=== PATIENT | male | born 1940 | race Caucasian/White ===

== ENCOUNTER 2022-11-25 10:52 | Emergency (ER) | payer MEDICARE, BC ==
[~2022-11-25] VITALS: Ht 182.9 cm; Wt 97.7 kg
[2022-11-25 10:58] VITALS: TEMP 97.7
[2022-11-25 13:24] VITALS: BP 167/92; PULSE 51; RESP 17; O2SAT 97
[2022-11-25] MEDS ORDERED: LIDOcaine 1% W/epiNEPHrine 1:100,000 20ml vial SQ ONE (14:15)
[2022-11-25] MEDS ORDERED: TETanus/Pertussis (Acell)/Diphther VAC/PF (Tdap-Adult) 0.5ml syringe IMVAC ONE (14:15)
[2022-11-25] MEDS ORDERED: bacitracin 15gm ointment TP ONE (14:15)
== END 2022-11-25 15:26 | disposition home or self-care (01) ==
LOC: ER 10:53
DX: S01.112A Laceration without foreign body of left eyelid and periocular area, initial encounter (principal); S09.90XA Unspecified injury of head, initial encounter; S00.12XA Contusion of left eyelid and periocular area, initial encounter; Z88.5 Allergy status to narcotic agent; Z88.6 Allergy status to analgesic agent; W19.XXXA Unspecified fall, initial encounter; Y93.89 Activity, other specified; Y92.89 Other specified places as the place of occurrence of the external cause; Y99.8 Other external cause status
CPT/HCPCS: 12011; 70450; 90471; 90715; 99285

== ENCOUNTER 2023-05-13 23:55 | Emergency (ER) | payer OTHER, MEDICARE, BC ==
[~2023-05-13] VITALS: Ht 182.9 cm; Wt 98.2 kg
[2023-05-14] MEDS: aspirin 81mg tab.chew PO ONE (00:36)
[2023-05-14] MEDS: nitroGLYCERIN 0.4mg SUBLingual tab SL PRN (00:36)
[2023-05-14 00:49] LABS: ALBUMIN 3.2 G/DL (3.4-5.0); ANION GAP 9 (8-16); BLOOD UREA NITROGEN 31 MG/DL (7-18); BUN/CREATININE RATIO 16.7 (10.0-20.0); CALCIUM 8.5 MG/DL (8.5-10.1); CHLORIDE 110 MMOL/L (99-107); CREATININE 1.86 MG/DL (0.60-1.10); GLUCOSE 102 MG/DL (70-104); PRO BRAIN NATRIURETIC PEPTIDE 434 PG/ML (0-450); SODIUM 143 MMOL/L (135-145); TOTAL CARBON DIOXIDE 24.3 MMOL/L (24-32); eCRCL 34 ML/MIN; eGFR 35 ML/MIN
[2023-05-14 00:54] LABS: POTASSIUM 4.2 MMOL/L (3.5-5.1)
[2023-05-14 00:55] LABS: BASOPHILS % (AUTO) 0.8 % (0-1); EOSINOPHILS # (AUTO) 0.1 X10'3 (0-0.9); EOSINOPHILS % (AUTO) 2.8 % (0-6); HEMATOCRIT 39.2 % (42.0-52.0); HEMOGLOBIN 13.1 g/dl (14.0-17.9); LYMPHOCYTES # (AUTO) 1.2 X10'3 (1.1-4.8); LYMPHOCYTES % (AUTO) 26.3 % (21-51); MEAN CORPUSCULAR HEMOGLOBIN 31.5 PG (27.0-31.0); MEAN CORPUSCULAR HGB CONC 33.4 g/dL (33.0-36.5); MEAN CORPUSCULAR VOLUME 94.3 FL (78-98); MEAN PLATELET VOLUME 8.8 FL (7.4-10.4); MONOCYTES # (AUTO) 0.5 X10'3 (0-0.9); MONOCYTES % (AUTO) 10.8 % (2-12); NEUTROPHILS # (AUTO) 2.7 X10'3 (1.8-7.7); NEUTROPHILS % (AUTO) 59.3 % (42-75); PLATELET COUNT 136 X10'3 (140-440); RED BLOOD COUNT 4.16 X10'6 (4.70-6.10); RED CELL DISTRIBUTION WIDTH 15.1 % (11.5-14.5); WHITE BLOOD COUNT 4.6 X10'3 (4.5-11.0)
[2023-05-14 02:19] VITALS: BP 167/88; PULSE 57; RESP 16; TEMP 97.6; O2SAT 95
== END 2023-05-14 02:21 | disposition home or self-care (01) ==
LOC: ER 23:56
DX: R07.89 Other chest pain (principal); E78.00 Pure hypercholesterolemia, unspecified; I10 Essential (primary) hypertension; Z88.5 Allergy status to narcotic agent; Z88.6 Allergy status to analgesic agent
CPT/HCPCS: 36415; 71045; 80048; 83880; 84484; 85025; 93005; 99285

== ENCOUNTER 2024-02-22 07:29 | Emergency (ER) | payer OTHER, MEDICARE, BC ==
[~2024-02-22] VITALS: Ht 182.9 cm; Wt 98.2 kg
[2024-02-22 08:09] LABS: BASOPHILS % (AUTO) 0.6 % (0-1); EOSINOPHILS # (AUTO) 0.1 X10'3 (0-0.9); EOSINOPHILS % (AUTO) 2.4 % (0-6); HEMATOCRIT 34.7 % (42.0-52.0); HEMOGLOBIN 11.3 g/dl (14.0-17.9); LYMPHOCYTES % (AUTO) 22.6 % (21-51); MEAN CORPUSCULAR HEMOGLOBIN 30.9 PG (27.0-31.0); MEAN CORPUSCULAR HGB CONC 32.5 g/dL (33.0-36.5); MEAN PLATELET VOLUME 8.7 FL (7.4-10.4); MONOCYTES # (AUTO) 0.5 X10'3 (0-0.9); MONOCYTES % (AUTO) 11.2 % (2-12); NEUTROPHILS # (AUTO) 2.8 X10'3 (1.8-7.7); NEUTROPHILS % (AUTO) 63.2 % (42-75); PLATELET COUNT 137 X10'3 (140-440); RED BLOOD COUNT 3.65 X10'6 (4.70-6.10); RED CELL DISTRIBUTION WIDTH 14.2 % (11.5-14.5); WHITE BLOOD COUNT 4.5 X10'3 (4.5-11.0)
[2024-02-22 08:29] LABS: ALANINE AMINOTRANSFERASE 12 U/L (12-78); ALBUMIN 3.2 G/DL (3.4-5.0); ALKALINE PHOSPHATASE 88 IU/L (46-116); ANION GAP 7 (8-16); ASPARTATE AMINO TRANSFERASE 14 U/L (10-37); BILIRUBIN,TOTAL 0.4 MG/DL (0.1-1.0); BLOOD UREA NITROGEN 25 MG/DL (7-18); BUN/CREATININE RATIO 15.3 (10.0-20.0); CALCIUM 8.8 MG/DL (8.5-10.1); CHLORIDE 107 MMOL/L (99-107); CREATININE 1.63 MG/DL (0.60-1.10); GLUCOSE 94 MG/DL (70-104); POTASSIUM 4.3 MMOL/L (3.5-5.1); SODIUM 139 MMOL/L (135-145); TOTAL CARBON DIOXIDE 25.4 MMOL/L (24-32); TOTAL PROTEIN 6.5 G/DL (6.4-8.2); eCRCL 38 ML/MIN; eGFR 41 ML/MIN
[2024-02-22 08:37] LABS: PRO BRAIN NATRIURETIC PEPTIDE 558 PG/ML (0-450)
[2024-02-22] MEDS ORDERED: ATOR10TA70 PO (08:49)
[2024-02-22] MEDS ORDERED: RIVA20TA PO (08:49)
[2024-02-22] MEDS ORDERED: METO-395 PO (08:49)
[2024-02-22] MEDS ORDERED: ROPI5TAB24 PO (08:49)
[2024-02-22] MEDS ORDERED: COLC0.6C3 PO (08:50)
[2024-02-22] MEDS ORDERED: ATOR10TA87 PO (08:51)
[2024-02-22 09:46] VITALS: BP 164/92; PULSE 52; RESP 14; TEMP 98.6; O2SAT 97
== END 2024-02-22 09:50 | disposition home or self-care (01) ==
LOC: ER 07:30
DX: R07.89 Other chest pain (principal); I10 Essential (primary) hypertension; I48.91 Unspecified atrial fibrillation; E78.00 Pure hypercholesterolemia, unspecified; Z88.5 Allergy status to narcotic agent
CPT/HCPCS: 36415; 71045; 80053; 83880; 84484; 85025; 93005; 99285